=== PATIENT | male | born 1955 | race African-American/Black ===

== ENCOUNTER 2018-11-08 03:43 | Emergency (ER) | payer OTHER ==
[~2018-11-08] VITALS: Ht 172.7 cm; Wt 75.0 kg
[~2018-11-08 03:43] MED LIST: NOCURR
[2018-11-08 03:45] VITALS: BP 164/99
== END 2018-11-08 04:00 | disposition left against medical advice (07) ==
LOC: EMS 03:43
DX: F10.129 Alcohol abuse with intoxication, unspecified (principal); F17.210 Nicotine dependence, cigarettes, uncomplicated; Z53.21 Procedure and treatment not carried out due to patient leaving prior to being seen by health care provider

== ENCOUNTER 2018-12-20 21:30 | Emergency (ER) | payer OTHER ==
[~2018-12-20] VITALS: Ht 167.6 cm; Wt 68.2 kg
[2018-12-20 21:42] VITALS: BP 167/101
== END 2018-12-20 23:45 | disposition left against medical advice (07) ==
LOC: EMS 21:31
DX: R07.9 Chest pain, unspecified (principal); Z53.21 Procedure and treatment not carried out due to patient leaving prior to being seen by health care provider

== ENCOUNTER 2018-12-27 11:48 | Emergency (ER) | payer OTHER ==
[~2018-12-27] VITALS: Ht 167.6 cm; Wt 68.2 kg
[2018-12-27 12:54] LABS: HEMATOCRIT 29.7 % (41-53); HEMOGLOBIN 9.2 g/dL (13.5-17.5); MEAN CORPUSCULAR HEMOGLOBIN 21.7 pg (26.0-34.0); MEAN CORPUSCULAR HGB CONC 31.1 G/dL (31.0-37.0); MEAN CORPUSCULAR VOLUME 70 fL (80-100); PLATELET COUNT (AUTO) 485 K/uL (150-450); RED BLOOD CELL COUNT(AUTO) 4.25 MIL/uL (4.50-5.90); RED CELL DISTRIBUTION WIDTH 23.8 % (11.5-14.5)
[2018-12-27 12:55] LABS: BAND NEUTROPHILS % (MANUAL) 0 % (0-5)
[2018-12-27 13:03] LABS: ANION GAP 5 mmol/L (8-16); CALCIUM, TOTAL 8.9 mg/dL (8.8-10.5); CARBON DIOXIDE 29 mmol/L (22-29); CHLORIDE 104 mmol/L (98-107); CREATININE 1.14 mg/dL (0.60-1.30); GLOMERULAR FILTR. RATE CALC > 60 mL/min (>60); GLUCOSE,RANDOM 108 mg/dL (70-110); POTASSIUM 4.6 mmol/L (3.5-5.1); SODIUM SERUM 138 mmol/L (136-145); UREA NITROGEN, BLOOD 21 mg/dL (7-18)
[2018-12-27 13:08] LABS: ALANINE AMINOTRANSFERASE 24 U/L (12-78); ALBUMIN 3.8 g/dL (3.4-5.0); ALKALINE PHOSPHATASE 92 U/L (46-116); ASPARTATE AMINOTRANSFERASE 28 U/L (15-37); BILIRUBIN,TOTAL 0.3 mg/dL (0.1-1.0); LIPASE 254 U/L (73-393); TOTAL PROTEIN, SERUM 7.6 g/dL (6.4-8.2)
[2018-12-27 13:19] LABS: B-TYPE NATRIURETIC PEPTIDE 30 pg/mL (0-100)
[2018-12-27 13:20] LABS: BASOPHILS % (MANUAL) 1 % (0-2); EOSINOPHILS % (MANUAL) 4 % (1-6); LYMPHOCYTES % (MANUAL) 20 % (22-44); MONOCYTES % (MANUAL) 4 % (2-9); SEGMENTED NEUTROPHILS % 71 % (40-70)
[2018-12-27] MEDS ORDERED: ASPIRIN 325 MG TABLET PO ONE (14:45)
[2018-12-27] MEDS ORDERED: NITROGLYCERIN 2% (1 GM=INCH) PACKET TP ONE (14:45)
[2018-12-27 17:44] VITALS: BP 132/78
== END 2018-12-27 18:00 | disposition short-term general hospital (02) ==
LOC: EMS 11:48
DX: I20.0 Unstable angina (principal); M79.622 Pain in left upper arm; I10 Essential (primary) hypertension; F17.210 Nicotine dependence, cigarettes, uncomplicated
CPT/HCPCS: 36415; 71045; 80053; 83690; 83880; 84484; 85025; 93005; 99291; 99406; G0480

== ENCOUNTER 2019-01-31 14:28 | Emergency (ER) | payer OTHER ==
[~2019-01-31] VITALS: Ht 167.6 cm; Wt 80.0 kg
[2019-01-31] MEDS ORDERED: BP MED PO (14:41)
[2019-01-31 15:17] LABS: HEMOGLOBIN 7.4 g/dL (13.5-17.5); MEAN CORPUSCULAR HEMOGLOBIN 21.2 pg (26.0-34.0); MEAN CORPUSCULAR HGB CONC 30.6 G/dL (31.0-37.0); MEAN CORPUSCULAR VOLUME 69 fL (80-100); PLATELET COUNT (AUTO) 435 K/uL (150-450); RED BLOOD CELL COUNT(AUTO) 3.46 MIL/uL (4.50-5.90); RED CELL DISTRIBUTION WIDTH 22.9 % (11.5-14.5)
[2019-01-31 15:32] LABS: CALCIUM, TOTAL 8.8 mg/dL (8.8-10.5); CREATININE 1.43 mg/dL (0.60-1.30); POTASSIUM 4.2 mmol/L (3.5-5.1)
[2019-01-31 15:38] LABS: ALBUMIN 3.5 g/dL (3.4-5.0); BILIRUBIN,TOTAL 0.3 mg/dL (0.1-1.0); TOTAL PROTEIN, SERUM 7.5 g/dL (6.4-8.2)
[2019-01-31 15:47] LABS: BAND NEUTROPHILS % (MANUAL) 0 % (0-5)
[2019-01-31 15:49] LABS: EOSINOPHILS % (MANUAL) 1 % (1-6); LYMPHOCYTES % (MANUAL) 26 % (22-44); MONOCYTES % (MANUAL) 7 % (2-9); SEGMENTED NEUTROPHILS % 66 % (40-70)
[2019-01-31 15:56] VITALS: BP 142/72
== END 2019-01-31 17:09 | disposition left against medical advice (07) ==
LOC: EMS 14:33
DX: D64.9 Anemia, unspecified (principal); R07.9 Chest pain, unspecified; I10 Essential (primary) hypertension; F17.210 Nicotine dependence, cigarettes, uncomplicated
CPT/HCPCS: 93005; 99291

== ENCOUNTER 2019-03-15 17:29 | Emergency (ER) | payer OTHER ==
[~2019-03-15] VITALS: Ht 167.6 cm; Wt 72.7 kg
[~2019-03-15 17:29] MED LIST changes: +BP MED PO; -NOCURR
[2019-03-15 17:30] VITALS: BP 175/101
[2019-03-15 18:04] LABS: BASOPHILS % (AUTO) 1.1 % (0.0-2.0); EOSINOPHILS % (AUTO) 5.9 % (1.0-6.0); HEMATOCRIT 25.8 % (41-53); HEMOGLOBIN 7.9 g/dL (13.5-17.5); LYMPHOCYTES # (AUTO) 2.8 K/uL (1.0-4.8); LYMPHOCYTES % (AUTO) 43.2 % (22.0-44.0); MEAN CORPUSCULAR HEMOGLOBIN 20.5 pg (26.0-34.0); MEAN CORPUSCULAR HGB CONC 30.6 G/dL (31.0-37.0); MEAN CORPUSCULAR VOLUME 67 fL (80-100); MONOCYTES # (AUTO) 0.6 K/uL (0.1-1.0); NEUTROPHILS # (AUTO) 2.7 K/uL (1.8-7.7); NEUTROPHILS % (AUTO) 40.8 % (40.0-70.0); PLATELET COUNT (AUTO) 426 K/uL (150-450); RED BLOOD CELL COUNT(AUTO) 3.86 MIL/uL (4.50-5.90); RED CELL DISTRIBUTION WIDTH 22.3 % (11.5-14.5)
[2019-03-15 18:15] LABS: ANION GAP 8 mmol/L (8-16); CALCIUM, TOTAL 9.1 mg/dL (8.8-10.5); CARBON DIOXIDE 28 mmol/L (22-29); CHLORIDE 105 mmol/L (98-107); CREATININE 1.25 mg/dL (0.60-1.30); GLOMERULAR FILTR. RATE CALC > 60 mL/min (>60); GLUCOSE,RANDOM 96 mg/dL (70-110); POTASSIUM 3.9 mmol/L (3.5-5.1); SODIUM SERUM 141 mmol/L (136-145); UREA NITROGEN, BLOOD 16 mg/dL (7-18)
[2019-03-15 18:21] LABS: ALANINE AMINOTRANSFERASE 23 U/L (12-78); ALBUMIN 3.6 g/dL (3.4-5.0); ALKALINE PHOSPHATASE 90 U/L (46-116); ASPARTATE AMINOTRANSFERASE 22 U/L (15-37); BILIRUBIN,TOTAL 0.3 mg/dL (0.1-1.0); TOTAL PROTEIN, SERUM 7.4 g/dL (6.4-8.2)
== END 2019-03-15 20:00 | disposition left against medical advice (07) ==
LOC: EMS 17:30
DX: R07.9 Chest pain, unspecified (principal); I10 Essential (primary) hypertension; F17.210 Nicotine dependence, cigarettes, uncomplicated; Z53.21 Procedure and treatment not carried out due to patient leaving prior to being seen by health care provider
CPT/HCPCS: 93005

== ENCOUNTER 2019-03-28 13:33 | Emergency (ER) | payer OTHER ==
[~2019-03-28] VITALS: Ht 170.2 cm; Wt 72.7 kg
[2019-03-28] MEDS ORDERED: NITROGLYCERIN 0.4 MG SUBLINGUAL TABLET #25 SL ONE (14:15)
[2019-03-28] MEDS ORDERED: ASPIRIN 325 MG TABLET PO ONE (14:15)
[2019-03-28 14:43] LABS: BASOPHILS % (AUTO) 0.5 % (0.0-2.0); EOSINOPHILS % (AUTO) 6.8 % (1.0-6.0); HEMATOCRIT 33.5 % (41-53); HEMOGLOBIN 10.2 g/dL (13.5-17.5); LYMPHOCYTES # (AUTO) 2.5 K/uL (1.0-4.8); LYMPHOCYTES % (AUTO) 32.4 % (22.0-44.0); MEAN CORPUSCULAR HEMOGLOBIN 22.6 pg (26.0-34.0); MEAN CORPUSCULAR HGB CONC 30.3 G/dL (31.0-37.0); MEAN CORPUSCULAR VOLUME 74 fL (80-100); MONOCYTES # (AUTO) 0.7 K/uL (0.1-1.0); MONOCYTES % (AUTO) 9.7 % (2.0-9.0); NEUTROPHILS # (AUTO) 3.9 K/uL (1.8-7.7); NEUTROPHILS % (AUTO) 50.6 % (40.0-70.0); PLATELET COUNT (AUTO) 427 K/uL (150-450)
[2019-03-28 14:50] LABS: ANION GAP 7 mmol/L (8-16); CARBON DIOXIDE 28 mmol/L (22-29); CHLORIDE 105 mmol/L (98-107); CREATININE 1.23 mg/dL (0.60-1.30); GLOMERULAR FILTR. RATE CALC > 60 mL/min (>60); GLUCOSE,RANDOM 86 mg/dL (70-110); POTASSIUM 4.1 mmol/L (3.5-5.1); SODIUM SERUM 140 mmol/L (136-145); UREA NITROGEN, BLOOD 16 mg/dL (7-18)
[2019-03-28 14:52] LABS: INR 0.9 (0.9-1.1); PROTHROMBIN TIME 9.8 SEC (9.4-11.6)
[2019-03-28 14:57] LABS: B-TYPE NATRIURETIC PEPTIDE 38 pg/mL (0-100)
[2019-03-28 15:15] LABS: ALANINE AMINOTRANSFERASE 22 U/L (12-78); ALBUMIN 3.5 g/dL (3.4-5.0); ALKALINE PHOSPHATASE 84 U/L (46-116); ASPARTATE AMINOTRANSFERASE 20 U/L (15-37); BILIRUBIN,TOTAL 0.5 mg/dL (0.1-1.0); CREATINE KINASE, TOTAL ONLY 163 U/L (39-308); TOTAL PROTEIN, SERUM 7.2 g/dL (6.4-8.2)
[2019-03-28 15:48] LABS: PLATELET MORPHOLOGY COMMENT LARGE PLTS PRESENT
[2019-03-28 18:08] LABS: APPEARANCE,URINE CLEAR (CLEAR); BILIRUBIN,URINE NEGATIVE (NEGATIVE); GLUCOSE, URINE (UA) NEGATIVE (NEGATIVE); KETONES,URINE NEGATIVE (NEGATIVE); LEUKOCYTE ESTERASE ,URINE SMALL (NEGATIVE); NITRATE,URINE NEGATIVE (NEGATIVE); OCCULT BLOOD,URINE NEGATIVE (NEGATIVE); PH,URINE 5.5 (5.0-8.0); PROTEIN,URINE NEGATIVE (NEGATIVE)
[2019-03-28 18:33] LABS: BACTERIA,URINE Few /HPF (None Seen); RBC,URINE None Seen /HPF (0-2); SQUAMOUS EPITHELIAL CELL,UR Few /LPF (None Seen)
[2019-03-28] MEDS ORDERED: HEPARIN SODIUM 25000 UNITS/D5W 250 ML IV PRN (20:07)
[2019-03-28] MEDS ORDERED: HEPARIN SODIUM,PORCINE 5,000 UNITS/ML VIAL IVP PRN ×2 (20:15)
[2019-03-28] MEDS ORDERED: HEPARIN SODIUM,PORCINE 5,000 UNITS/ML VIAL IVP ONE (20:15)
[2019-03-28 22:43] VITALS: BP 150/81
== END 2019-03-28 22:46 | disposition short-term general hospital (02) ==
LOC: EMS 13:34
DX: R07.9 Chest pain, unspecified (principal); R79.89 Other specified abnormal findings of blood chemistry; I10 Essential (primary) hypertension; F17.210 Nicotine dependence, cigarettes, uncomplicated
CPT/HCPCS: 87086; 93005; 99291

== ENCOUNTER 2022-05-07 12:10 | Emergency (ER) | payer OTHER ==
[~2022-05-07] VITALS: Ht 175.3 cm; Wt 70.5 kg
[2022-05-07] MEDS ORDERED: POLYETHYLENE GLYCOL 3350 17 GM PACKET PO ONE (15:00)
[2022-05-07] MEDS ORDERED: POLY238P PO (15:03)
[2022-05-07 15:10] VITALS: BP 167/84
== END 2022-05-07 15:19 | disposition home or self-care (01) ==
LOC: EMS 12:10
DX: K59.00 Constipation, unspecified (principal); Z86.79 Personal history of other diseases of the circulatory system; I10 Essential (primary) hypertension; F17.210 Nicotine dependence, cigarettes, uncomplicated; Z98.890 Other specified postprocedural states
CPT/HCPCS: 99282; Z7502; Z7610

== ENCOUNTER 2023-03-05 12:39 | Emergency (ER) | payer MEDICARE, OTHER ==
[~2023-03-05] VITALS: Ht 172.7 cm; Wt 70.5 kg
[~2023-03-05 12:39] MED LIST changes: -BP MED PO; +POLY238P PO
[2023-03-05 12:47] VITALS: TEMP 98.8
[2023-03-05] MEDS ORDERED: IBUPROFEN 600 MG TABLET PO ONE (14:30)
[2023-03-05] MEDS ORDERED: IBUP-1492 PO ×2 (14:30→20:16)
[2023-03-05] MEDS ORDERED: CYCL-448 PO ×2 (14:30→20:16)
[2023-03-05] MEDS ORDERED: LIDOCAINE 5% TRANSDERMAL PATCH TD ONE (14:30)
[2023-03-05 14:42] VITALS: BP 157/89; PULSE 89; RESP 18
== END 2023-03-05 14:54 | disposition home or self-care (01) ==
LOC: EMS 12:39
DX: M54.50 Low back pain, unspecified (principal); I10 Essential (primary) hypertension; F17.210 Nicotine dependence, cigarettes, uncomplicated
CPT/HCPCS: 99283